=== PATIENT | female | born 1995 | race Caucasian/White ===

== ENCOUNTER 2019-03-16 07:33 | Emergency (ER) | payer MEDICAID ==
[2019-03-16 07:38] VITALS: BP 141/82
[2019-03-16] MEDS ORDERED: LIDOCAINE 1% INJ-PF (10 MG/ML) 30 ML SDV INJ ONE (09:48)
[2019-03-16] MEDS ORDERED: CEPHALEXIN 500 MG CAPSULE PO ONE (10:36)
--- NOTE | 2019-03-16 10:36 | ER Document Report ---
Entered by DEVANTE BAIRD SCRIBE 03/16/19 0924 Acting as scribe for:MATTHEW FLEMING MD ED ENT - General Chief Complaint: Foreign Body in Ear Stated Complaint: EARRING "STUCK" IN LEFT EAR LOBE Time Seen by Provider: 03/16/19 09:22 Mode of Arrival: Ambulatory Information source: Patient Notes: This 23 year old female patient presents to the ED today with complaints of left ear pain secondary to an earring being stuck in the left upper region of the ear that started x6 days ago. Patient states that she was unable to get the earring out of the cartilage. Patient denies any other symptoms. - Related Data Allergies/Adverse Reactions: No Known Allergies Allergy (Verified 03/16/19 08:27) Past Medical History - General Information source: Patient - Social History Smoking Status: Current Every Day Smoker Cigarette use (# per day): Yes - 1 ppd Chew tobacco use (# tins/day): No Smoking Education Provided: No Frequency of alcohol use: None Drug Abuse: Marijuana Family History: Reviewed & Not Pertinent Patient has suicidal ideation: No Patient has homicidal ideation: No Psychiatric Medical History: Reports: Hx Attention Deficit Hyperactivity Disorder Past Surgical History: Reports: None - Immunizations Immunizations up to date: Yes Review of Systems - Review of Systems Constitutional: No symptoms reported EENT: See HPI, Ear pain Cardiovascular: No symptoms reported Respiratory: No symptoms reported Gastrointestinal: No symptoms reported Genitourinary: No symptoms reported Female Genitourinary: See HPI, Last menstrual period - x2 weeks ago Musculoskeletal: No symptoms reported Skin: No symptoms reported Hematologic/Lymphatic: No symptoms reported -: Yes All other systems reviewed and negative Physical Exam - Vital signs Vitals: Temp Pulse Resp BP Pulse Ox 97.9 F 63 16 141/82 H 100 03/16/19 07:37 03/16/19 07:37 03/16/19 07:37 03/16/19 07:37 03/16/19 07:37 - General General appearance: Appears well, Alert - HEENT Head: Normocephalic, Atraumatic Eyes: Normal Pupils: PERRL Ears: Other - The back of the earring appears to be underneath the skin of the upper part of the left ear. There is a slit on the back side of the ear. - Respiratory Respiratory status: No respiratory distress Chest status: Nontender Breath sounds: Normal Chest palpation: Normal - Cardiovascular Rhythm: Regular Heart sounds: Normal auscultation Murmur: No - Abdominal Inspection: Normal Distension: No distension Bowel sounds: Normal Tenderness: Nontender Organomegaly: No organomegaly - Back Back: Normal, Nontender - Extremities General upper extremity: Normal inspection General lower extremity: Normal inspection - Neurological Neuro grossly intact: Yes - Psychological Associated symptoms: Normal affect, Normal mood - Skin Skin Temperature: Warm Skin Moisture: Dry Skin Color: Normal Course - Vital Signs Vital signs: Temp Pulse Resp BP Pulse Ox 97.9 F 63 16 141/82 H 100 03/16/19 07:37 03/16/19 07:37 03/16/19 07:37 03/16/19 07:37 03/16/19 07:37 Discharge - Discharge Clinical Impression: Foreign body (FB) in soft tissue Condition: Stable Disposition: HOME, SELF-CARE Additional Instructions: Take the medication as prescribed. Take Tylenol and ibuprofen for pain if needed. Watch for any signs of infection. Follow-up with your primary care provider or return to the emergency room if any sign of infection develops. RETURN TO THE EMERGENCY ROOM IF ANY NEW OR WORSENING SYMPTOMS. Prescriptions: Cephalexin Monohydrate [Keflex 500 mg Capsule] 500 mg PO QID #20 capsule Scribe Attestation: 03/16/19 10:36 I personally performed the services described in the documentation, reviewed and edited the documentation which was dictated to the scribe in my presence, and it accurately records my words and actions. I personally performed the services described in the documentation, reviewed and edited the documentation which was dictated to the scribe in my presence, and it accurately records my words and actions.
== END 2019-03-16 11:15 | disposition home or self-care (01) ==
LOC: ER 07:33
DX: T16.2XXA Foreign body in left ear, initial encounter (principal); F17.210 Nicotine dependence, cigarettes, uncomplicated
CPT/HCPCS: 99282; J3490